=== PATIENT | female | born 1960 | race Two or more races ===

== ENCOUNTER 2024-04-19 20:32 | Outpatient (OUT) | payer OTHER, SELFPAY | END 2024-04-19 20:33 | disposition home or self-care (01) | LOC: SLEEP 20:54 | PROVIDERS: PCP Nurse Practitioner Family; Visit Provider Nurse Practitioner Family | DX: G47.33 Obstructive sleep apnea (adult) (pediatric) (principal) | CPT/HCPCS: 95811 ==